=== PATIENT | male | born 1950 | race Caucasian/White ===

== ENCOUNTER → 2018-05-06 10:10 | Outpatient (CLI) | payer MEDICARE, OTHER, SELFPAY ==
--- NOTE | 2018-05-06 10:14 | DI.RAD.S_ITS ---
PROCEDURE: XR LUMBAR SPINE 2-3V INDICATIONS: 67-year-old man with low bck pain TECHNIQUE: 3 views of the lumbar spine were acquired. COMPARISON: None. FINDINGS: Bones: 5 [id number] vertebrae are present. There is grade 1 anterolisthesis of C4 over C5. No vertebral body compression fractures. No suspicious bony lesions. There is mild degenerative disc disease scattered in lumbar spine. Severe facet arthropathy at L4-L5 and L5-S1. Soft tissues: Overlying bowel gas pattern is normal. Vascular calcifications consistent with atherosclerosis. IMPRESSION: Degenerative disc and facet disease as described. Dictated by: Robert Vizcaino M.D. on 05/06/2018 at 13:41 Approved by: Robert Vizcaino M.D. on 05/06/2018 at 13:43
[2018-05-06 14:46] LABS: Prostate Specific Antigen Scrn 1.15 ng/mL (0.1-4.0)
== END ==
PROVIDERS: Visit Provider Family Medicine
DX: M54.5 Low back pain (principal)
CPT/HCPCS: 36415; 72100; G0103

== ENCOUNTER 2018-10-23 08:06 | Inpatient (IN) | payer MEDICARE, OTHER, SELFPAY ==
[2018-10-02 12:46] VITALS: BMI 33.3
[2018-10-23] VITALS (24 sets, daily range): BP systolic 91–149; BP diastolic 51–91; PULSE 62–101; RESP 12–20; TEMP 36.1–37.1; O2SAT 93–100; BMI 33.2; BMI 33.9
--- NOTE | 2018-10-23 | DI.RAD.S_ITS ---
PROCEDURE: XR LUMBAR SPINE 2-3V INDICATIONS: L4-5 TLIF FINDINGS: 2 limited intraoperative fluoroscopically stored images of the lumbosacral junction were obtained for intraoperative hardware localization purposes. These images are not meant for diagnostic purposes. Intraoperative findings related to a L4-5 discectomy infusion procedure are present. IMPRESSION: Intraoperative images obtained during the patient's L4-5 discectomy and fusion procedure. Dictated by: Afshin Campbell M.D. on 10/24/2018 at 12:16 Approved by: Afshin Campbell M.D. on 10/24/2018 at 12:17
[2018-10-23] MEDS: LACTATED RINGERS 1,000 ML 42 ML IV ×2 (08:53→12:23)
--- NOTE | 2018-10-23 09:23 | PM.PREOP ---
Pre-operative Note Interval Note History & Physical reviewed/Exam performed by Physician: Yes Changes to H&P: No
--- NOTE | 2018-10-23 09:27 | P.OP_ITS ---
Operative Date/Time/Diagnoses Date of procedure: 10/23/18 Time of procedure: 12:25 Pre-op diagnosis: Lumbar stenosis with radiculopathy Lumbar spondylolisthesis Post-op diagnosis: same Procedure & Clinicians Procedure: L4-5 TLIF (post/post innerbody fusion) with cage L4 and L5 screws L4-5 laminectomy Use of microscope Iliac crest bone graft Placement of epidural catheter Same procedure as scheduled: Yes Indications: [age] year old male with intractable pain from lumbar stenosis and spondylolisthesis. They had failed conservative management and requested operative intervention. Risks and benefits of surgery were discussed and appropriate consents were obtained. Surgeon: Rick Collado Assembly Inspector Helper: Alessandra Tillman Anesthesia Type: General Operative Notes Findings: None Closure Type: primary Specimen(s): none sent Implants & Drains: NuVasive MAS Reline screws Globus Rise cage Applied: catheter Estimated Blood Loss (mL): 20 Procedure in detail: The patient was brought to the operating room and intubated on the table. A time-out was performed. They were then rolled over to the well-padded Don table in the prone position. Preoperative antibiotics were given. The back was prepped and draped in the standard sterile fashion. Using fluoroscopy, a 4 cm longitudinal incision was made to the left of the midline. We used Bovie to come down to and split the lumbodorsal fascia. Using fluoroscopy and monitoring, we then percutaneously placed Jamshidi needles down the pedicles of L4 and L5 on the left side. These were changed out to guidewires and then we tapped and then placed the NuVasive MAS Precept screw shanks. We then opened up the retractors and used Bovie to clear up the posterolateral gutter as well as medially along the lamina to the spinous processes. A bur was used to decorticate the transverse processes. We brought in the microscope. Using a combination of bur and Kerrison rongeurs , a laminectomy was performed from the left side. We cleared over past the midline and carefully depressed the dura until we were able to decompress the opposite side. We cleared out the neural foramen. This completed the laminectomy at L4-5. This was separate and distinct from the TLIF approach as we were decompressing the canal and the nerves. We then began the TLIF prep. A complete facetectomy was performed on this side at L4-5. We carefully cleaned up the remainder of the foramen until we could easily retract the exiting root as well as clearing medially below the dura and expose the disc space. The disc was prepped with bipolar and then an annulotomy was performed. We performed a diskectomy using a combination of paddles, alissa, pituitaries, and curettes. We distracted the disc using a paddle and locked the retractor in an open position. We then filled the disc space with Osteocell bone graft. We then placed the globus Rise cage under fluoroscopy and then filled this in with more bone graft. The distraction on the retractor was released to compress down. This completed the posterior interbody fusion portion of the TLIF at L4-5. We then placed the screw heads, fabi, and locked down the set screws. The wound was copiously irrigated. A small stab incision was made over the PSIS. We used a Jamshidi needle to aspirate several mL of bone marrow from the pelvis. This was mixed with the remaining Osteocell and combined with all of the locally harvested bone graft and placed in the posterolateral gutter for the posterior fusion of the TLIF at L4-5. An epidural catheter was then placed in the spinal canal by carefully depressing the dura and advancing it 6 cm cephalad under the remaining lamina without resistance. The muscle fascia was closed. The catheter was then injected with a solution containing 4 mL of 0.5% Marcaine, 1 mg Stadol, 4 mg Duramorph, and 100 mcg of fentanyl. This was injected without resistance and the catheter was pulled. We then went to the opposite side. Again using fluoroscopy, a 3 cm incision was made and Bovie was used to come down to split the fascia. Using neural monitoring and fluoroscopy, Jamshidi needles were advanced down the pedicles of L4 and L5 on the right side. These were switched over guidewires, tapped, and screws placed. We then placed a fabi and locked the set screws on this side. The wound was irrigated. The fascia was closed. Vancomycin powder was placed in the wounds. The superficial and skin were closed. A sterile dressing was placed. The patient was then rolled over extubated and brought to recovery room without complications. Complications: none Condition: stable Disposition: PACU Plan for aftercare: Inpatient. Up with physical therapy.
[2018-10-23] MEDS: CEFAZOLIN 2 GM/100 ML FROZ.PIGGY IV ×2 (09:56→17:10)
--- NOTE | 2018-10-23 10:35 | SUR.OPER ---
Prone on spine table, head in foam head support, padded chest and pelvic supports, gel pad at knees, lower legs supported by pillows; nipples, genitalia and toes free of pressure, arms secured on foam padded arm boards at <90 degrees abduction. Tape over blanket at thigh secured to table.
[2018-10-23] MEDS: BUPIVACAINE 0.5% (PF) 4 ML, MORPHINE-PF 4 MG, BUTORPHANOL 1 MG, fentaNYL 100 MCG INJ (11:00)
[2018-10-23] MEDS: VANCOMYCIN 1,000 MG VIAL 1000 MG TOP (11:04)
[2018-10-23] MEDS: SODIUM CHLORIDE 0.9% 1,000 ML, GENTAMICIN 80 MG IRR (11:04)
[2018-10-23] MEDS: THROMBIN (BOVINE) 5,000 UNIT VIAL 5000 UNIT TOP (11:11)
[2018-10-23] MEDS: HYDROMORPHONE 2 MG INJ 0.5 MG IV ×4 (13:01→13:28)
[2018-10-23] MEDS: LORazepam 2 MG/ML SYRINGE 0.5 MG IV (13:33)
[2018-10-23] MEDS: fentaNYL 100 MCG/2 ML INJ 50 MCG IV ×3 (13:34→13:46)
[2018-10-23] MEDS: ALBUTEROL 2.5 MG/3 ML NEB (ADULT) INH (13:43)
--- NOTE | 2018-10-23 14:11 | SUR.PHASEI ---
Pt recieved a breathing treatment. his lungs remained clear but pt requested a treatment due to his hx of asthma pt states his breathing feels good now. pt also states hiis pain is always at a 5-6 . he states he can live with that.
[2018-10-23] MEDS: LACTATED RINGERS 1,000 ML 125 ML IV ×2 (14:49→23:38)
[2018-10-23] MEDS: OXYCODONE IR 5 MG TABLET 10 MG PO ×2 (14:49→23:48)
[2018-10-23] MEDS: CARISOPRODOL 350 MG TABLET 525 MG PO (16:18)
[2018-10-23] MEDS: CELECOXIB 200 MG CAPSULE 400 MG PO (16:19)
[2018-10-23] MEDS: buPROPion XL 150 MG TAB PO (16:19)
[2018-10-23] MEDS: MONTELUKAST 10 MG TABLET PO (17:07)
[2018-10-23] MEDS: diphenhydrAMINE 25 MG TABLET PO (18:25)
[2018-10-23] MEDS: CELECOXIB 200 MG CAPSULE PO (22:00)
[2018-10-23] MEDS: DOCUSATE 100 MG CAPSULE PO (22:00)
[2018-10-23] MEDS: TRAZODONE 100 MG TABLET 200 MG PO (22:00)
[2018-10-23] MEDS: GABAPENTIN 300 MG CAPSULE PO (22:00)
[2018-10-23] MEDS: SENNOSIDES 8.6 MG TABLET 17.2 MG PO (22:00)
[2018-10-23] MEDS: FLUTICASONE 120 SPRAY/16 GM SPRAY.SUSP NASAL (22:00)
[2018-10-24] MEDS: CEFAZOLIN 2 GM/100 ML FROZ.PIGGY IV (02:17)
[2018-10-24] MEDS: OXYCODONE IR 5 MG TABLET 10 MG PO ×3 (04:03→11:13)
[2018-10-24 04:19] VITALS: BP 122/73; PULSE 74; RESP 16; TEMP 36.8; O2SAT 93
[2018-10-24] MEDS: diphenhydrAMINE 25 MG TABLET PO ×2 (04:39→10:06)
[2018-10-24 05:51] LABS: Hematocrit 39.3 % (41-53); Hemoglobin 13.3 g/dL (13.5-17.5)
[2018-10-24 07:54] VITALS: BP 141/69; PULSE 69; RESP 18; TEMP 36.7; O2SAT 97
--- NOTE | 2018-10-24 07:56 | PM.PNPO.1 ---
Subjective Date Patient Seen: 10/24/18 Time Patient Seen: 07:56 Interval history: He is doing well. Was actually up and walking around by himself last night. No leg pain. Back pain has gone as high as a 6, but coming back down after pain medication. Exam Vital Signs (past 8 hours): - 10/24/18 04:19 Temperature 98.3 F Pulse Rate 74 Respiratory Rate 16 Blood Pressure 122/73 Pulse Oximetry 93 Fraction of Inspired Oxygen 21 Oxygen Delivery Method Room Air Oxygen Flow Rate 0 Const Orientation: alert and oriented x3 Back/Spine/Pelvis Other: Mild dry drainage on dressing. 5/5 motor both lower extremities. Easily rolls over and sits up in bed. Objective Labs Result Diagrams: 10/24/18 05:10 Labs: Laboratory Results - last 24 hr 10/24/18 05:10 Hgb 13.3 L Hct 39.3 L Assessment & Plan Post-op Postoperative Procedures Operation Date: 10/23/18 09:45 Actual Procedures Side Surgeon p L4-5 Laminectomy w/Instru. fusion Rick Collado MD he is doing very well after surgery. Mobilize with therapy. Anticipate discharge home tomorrow, but he may be comfortable enough to to go home later this afternoon and I will leave the paperwork in the chart if needed. Quality VTE Deep Vein Thrombosis/Pulmonary Embolism Present on Admission: No
[2018-10-24] MEDS: POTASSIUM CHLORIDE 10 MEQ TAB PO (08:09)
[2018-10-24] MEDS: buPROPion XL 150 MG TAB PO (08:09)
[2018-10-24] MEDS: hydroCHLOROthiazide 25 MG TABLET PO (08:09)
[2018-10-24] MEDS: CELECOXIB 200 MG CAPSULE PO (08:09)
[2018-10-24] MEDS: CITALOPRAM 20 MG TABLET PO (08:09)
[2018-10-24] MEDS: DOCUSATE 100 MG CAPSULE PO (08:09)
[2018-10-24 08:10] VITALS: BP 141/69
[2018-10-24] MEDS: LOSARTAN 50 MG TABLET 100 MG PO (08:10)
[2018-10-24] MEDS: SILDENAFIL 20 MG TABLET 60 MG PO (08:11)
--- NOTE | 2018-10-24 12:34 | PT.IIE ---
Current Diagnoses Spondylolisthesis, lumbar region (10/23/18) Spinal stenosis, lumbar region with neurogenic claudication (10/23/18) Surgery Performed Operation Date: 10/23/18 09:45 Actual Procedures p L4-5 Laminectomy w/Instru. fusion - Rick Collado MD Surgical History (Last Updated 10/02/18 @ 13:16 by Consuelo Mann, RN) History of vasectomy (Acute) Hx of cholecystectomy (Acute ~2016) S/P UPPP (uvulopalatopharyngoplasty) (Acute) Anesthesia (Resolved) History of gastric bypass (Resolved ~2010) History of hernia surgery (Resolved ~2007) History of knee surgery (Resolved ~2006) History of knee surgery (Resolved ~2008) History of shoulder surgery (Resolved ~1994) Medical History (Last Updated 10/02/18 @ 13:19 by Consuelo Mann RN) Atrial fibrillation with RVR (Acute ~2016) Easy bruisability (Acute) Pneumonia (Acute) Psoriasis (Acute) Sleep apnea (Acute) Ankle pain (Chronic) Asthma (Chronic) Cataracts, bilateral (Chronic ~2014) Chronic back pain (Chronic) Depression (Chronic ~2006) Foot pain (Chronic) Headache (Chronic) Hearing loss (Chronic ~1989) Hypertension (Chronic ~2012) Seasonal allergies (Chronic) Shoulder pain (Chronic) Vision disorder (Chronic) Chicken pox (Resolved ~1965) Measles (Resolved) Mumps (Resolved) Physical Therapy Inpatient Evaluation/Re-Eval M1 PT/OT-IP Prior Functional Status Start: 10/24/18 12:14 Freq: NEEDED Status: Active Protocol: Document 10/24/18 10:20 (Rec: 10/24/18 12:33 [email or web address]) Medical Review Prior Functional Status Medical History Reviewed Yes Diet/Fluid Consistency Regular Communication no deficits noted Mobility and Gait independent ambulator without AD at home and community Activities of Daily Living and IADL's independent for ADLs and IADLs without AD Social History Household Members spouse Living Arrangements House Number of Floors (Floors) 3 or More Floors Number of Stairs To Enter/Railing? 2 [place]ICO without railings Home Environment Standard Height Toilet Walk in Shower Home Equipment Four Wheel Walker Employment Status Retired Additional Social History Comment Pt lives with his who will be his CG as needed after d/c. Pt lives at a 3 story house with 2 [place] w/o railings and 14 steps inside of the house. He also has counters around next to each stairs for him to support as needed. Pt is independent for all ADLs and IADLs prior to sx. M2 PT-IP Current Condition Start: 10/24/18 12:14 Freq: NEEDED Status: Active Protocol: Document 10/24/18 10:20 HH (Rec: 10/24/18 12:33 [email or web address]) Physical Therapy Current Condition Current Condition Evaluation Date 10/24/18 Treatment Diagnosis Post TLIF Onset Date 10/24/18 Precautions Lumbar Precautions Log Roll No Twisting Limit Bending Lifting Restriction of 10 lbs Gait Belt above Incisional Area Weight Bearing Status Weight Bearing Status Weight Bear as Tolerated M3 PT-IP Subjective Start: 10/24/18 12:14 Freq: NEEDED Status: Active Protocol: Document 10/24/18 10:20 HH (Rec: 10/24/18 12:33 [email or web address]) Subjective Physical Therapy Visit Type Type Initial Evaluation Visit Start Time 10:20 Visit Stop Time 11:00 Total Visit Minutes 40 Number of HANGING FLAGS DECORATOR Visits 0 Physical Therapy Visit Comments Patient Comments My pain is only 2/10 at rest but 5/10 when im walking. I've been going to bathroom at night with nursing staff without using walker. Patient Goals To reach PLOF without using AD and pain free to be able to go home Therapy Pain Assessment Pain When Pain Assessed During Mobility Pain Present Pain Present Pain Reported Location Generalized Intensity 5 Scale Used Numeric (1 - 10) Description Aching Pain Management Techniques Apply Cold Re-positioning Timing of Activity with Medications M4 PT-IP Mobility and Gait Start: 10/24/18 12:14 Freq: NEEDED Status: Active Protocol: Document 10/24/18 10:20 HH (Rec: 10/24/18 12:33 [email or web address]) PT-Bed Mobility Assessment Rolling Type of Rolling Log Rolling Level of Assist Standby Assistance Supine to Sit Supine to Sit Standby Assistance Sit to Supine Sit to Supine Standby Assistance Scooting Scooting to Edge of Bed Standby Assistance Scooting Up and Down in Bed Standby Assistance PT-Transfer Assessment Sit to and From Stand Sit to and from Stand Standby Assistance Equipment Transfer Assistive Device None Gait Belt Transfers Transfer Destination Bed Chair Toilet Wheelchair Transfer Technique Stand Step Pivot Transfer Ability Level of Assist Standby Assistance Comments Mobility Comments Pt's BP ranged from 127-132/ 73-80 HR 79-82 during tx session. Pt performed overall bed mobility and transfer with SBA 1pa. Pt and his understand post op precations and able to recall them at the end of tx session. Pt did not show signs of acute distress and LOB. Gait Assessment Gait Gait Assistance Required: Standby Assistance Distance (Feet) 200 Able to Maintain Weight Bearing Status Yes During Gait Assistive Devices Assistive Device None Gait Belt Gait Deviations General Gait Pattern Within Normal Limits Comments Gait Comments Pt amb from EOB to hallway > 200 feet without rest SBA without AD. Pt did not show signs of LOB and acute distress. He also did not c/o increase in pain and did not request for rest. Pt does demonstrate sway back posture with decreased arm swing. Education is given to pt and his regarding neutral alignment to avoid excessive lumbar extension during walking. Stair Climbing Assessment Evaluation Level of Assist On Stairs Standby Assistance Devices Stair Climbing Assistive Devices None Technique/Endurance Stair Climbing Direction Ascend and Descend Stair Climbing Technique Step Over Step Number of Steps Climbed 9 Query Text: Comments Stair Climbing Comments Pt demonstrates safe stair negotiation without AD SBA. Pt uses step over pattern without signs of LOB and acute distress. PT-Balance Assessment Sitting Balance and Reactions Static Sitting Balance Ability Normal Dynamic Sitting Balance Ability Normal Standing Balance and Reactions Static Standing Balance Ability Normal Dynamic Standing Balance Ability Normal M5 PT-IP Objective Assessments Start: 10/24/18 12:14 Freq: NEEDED Status: Active Protocol: Document 10/24/18 10:20 (Rec: 10/24/18 12:33 [email or web address]) Orientation Orientation/Cognition Level of Alertness Alert Orientation Name Age Birthday Month Date Year Day of Week Place Situation Language Function Ability No Deficits Noted Safety Awareness Understands Safety Issues Memory Description No Deficits Noted Gross Range of Motion Upper Extremity ROM Assessment Within Functional Limits Lower Extremity ROM Assessment Within Functional Limits Strength Upper Extremity Strength Assessment Within Functional Limits Lower Extremity Strength Assessment Within Functional Limits Coordination Assessment Gross Coordination Gross Coordination WNL Sensation Assessment Sensation Gross Sensation WNL M6 PT-IP Treatment Start: 10/24/18 12:14 Freq: NEEDED Status: Active Protocol: Document 10/24/18 10:20 (Rec: 10/24/18 12:33 [email or web address]) Physical Therapy Treatment Education Education Provided Precautions Weight Bearing Status Post-Op Packet Safety M7 PT-IP Assessment and Plan Start: 10/24/18 12:14 Freq: NEEDED Status: Active Protocol: Document 10/24/18 10:20 (Rec: 10/24/18 12:33 [email or web address]) PT Summary Assessment and Plan Potential Rehabilitation Potential Excellent Status of Condition at Evaluation Stable Summary Impairments Pain Activity Tolerance Assessment Summary Pt is 68 yo pleasant male post op day 1 TLIF due to his chronic back pain and radiating pain down to his B buttock. Pt demonstrates significant recovery after surgery without signs of acute distress and LOB during mobility assessment. Pt and his reports they think pt is already back to PLOF with decreased pain. Pt will be d/c to home today due to his current stable medical status. In my professional opinion, pt will further benefit from receiving outpatient PT for rehab to address his pain, increase his overall mobility and functional strength. Goals Bed Mobility Goal Independent Transfer Goal Independent Gait Goal Independent Gait Distance 500 Days to Meet Goals 3 Frequency of Treatment Frequency Of Treatment Twice a Day Treatment Plan Physical Therapy Treatment Plan Bed Mobility Training Transfer Training Gait Training Therapeutic Exercise Balance Retraining Post Op Education Hot or Cold Pack Other Recommendations and Next Treatment stair climbing as trell Focus gait training as trell Recommendations To Nursing Amount of Assist Needed Standby Assistance 1 Person Assist Discharge Recommendations PT Discharge Recommendations Home Outpatient PT
--- NOTE | 2018-10-24 12:45 | PC.NURSE ---
Pt dressed, showered, and ready for discharge home with spouse. Pt has worked with PT and OT today and has been cleared. Reviewed discharge orders with Pt and Spouse, discussed d/c meds, time of last dose, encouraged Pt to drink lots of fluids and consider a stool softener to prevent constipation. Reviewed stroke education. Pt and Spouse deny further questions and is ready to be taken out via w/c by HEMATOLOGY TECHNOLOGIST to POV with Spouse and all belongings.
--- NOTE | 2018-10-24 12:51 | OT.IP.EVAL ---
Current Diagnoses Spondylolisthesis, lumbar region (10/23/18) Spinal stenosis, lumbar region with neurogenic claudication (10/23/18) Surgery Performed Operation Date: 10/23/18 09:45 Actual Procedures p L4-5 Laminectomy w/Instru. fusion - Rick Collado MD Past Medical History (Last Updated 10/02/18 @ 13:19 by Consuelo Mann RN) Atrial fibrillation with RVR (Acute ~2016) Easy bruisability (Acute) Pneumonia (Acute) Psoriasis (Acute) Sleep apnea (Acute) Ankle pain (Chronic) Asthma (Chronic) Cataracts, bilateral (Chronic ~2014) Chronic back pain (Chronic) Depression (Chronic ~2006) Foot pain (Chronic) Headache (Chronic) Hearing loss (Chronic ~1989) Hypertension (Chronic ~2012) Seasonal allergies (Chronic) Shoulder pain (Chronic) Vision disorder (Chronic) Chicken pox (Resolved ~1965) Measles (Resolved) Mumps (Resolved) Surgical History (Last Updated 10/02/18 @ 13:16 by Consuelo Mann RN) History of vasectomy (Acute) Hx of cholecystectomy (Acute ~2016) S/P UPPP (uvulopalatopharyngoplasty) (Acute) Anesthesia (Resolved) History of gastric bypass (Resolved ~2010) History of hernia surgery (Resolved ~2007) History of knee surgery (Resolved ~2006) History of knee surgery (Resolved ~2008) History of shoulder surgery (Resolved ~1994) Occupational Therapy Inpatient Evaluation/Re-Eval M1 PT/OT-IP Prior Functional Status Start: 10/24/18 12:14 Freq: NEEDED Status: Active Protocol: Document 10/24/18 10:20 (Rec: 10/24/18 12:33 [id number]) Medical Review Prior Functional Status Medical History Reviewed Yes Diet/Fluid Consistency Regular Communication no deficits noted Mobility and Gait independent ambulator without AD at home and community Activities of Daily Living and IADL's independent for ADLs and IADLs without AD Social History Household Members spouse Living Arrangements House Number of Floors (Floors) 3 or More Floors Number of Stairs To Enter/Railing? 2 [place]ICO without railings Home Environment Standard Height Toilet Walk in Shower Home Equipment Four Wheel Walker Employment Status Retired Additional Social History Comment Pt lives with his who will be his CG as needed after d/c. Pt lives at a 3 story house with 2 [place] w/o railings and 14 steps inside of the house. He also has counters around next to each stairs for him to support as needed. Pt is independent for all ADLs and IADLs prior to sx. M1 PT/OT-IP Prior Functional Status Start: 10/24/18 12:30 Freq: NEEDED Status: Active Protocol: Document 10/24/18 12:31 [facility] (Rec: 10/24/18 12:50 [facility] [id number]) Medical Review Prior Functional Status Medical History Reviewed Yes Communication Independent. Mobility and Gait Pt independent with no device. Activities of Daily Living and IADL's Pt needing increased time for ADL's and IADL needs. Pt takes his own medications and pays the bills. Prior Functional Level (Other details) Pt's states will have pt sleep in the recliner initially. Social History Household Members spouse Living Arrangements House Number of Floors (Floors) 3 or More Floors Number of Stairs To Enter/Railing? 2 steps and no rails, and 14 steps with right hand rail going up to the bedroom. Home Environment Standard Height Toilet Walk in Shower Home Equipment Four Wheel Walker Straight Cane M2 OT-IP Current Condition Start: 10/24/18 12:30 Freq: Status: Active Protocol: Document 10/24/18 12:31 [facility] (Rec: 10/24/18 12:50 [facility] [id number]) Occupational Therapy Current Condition Current Condition Evaluation Date 10/24/18 Treatment Diagnosis Lumber Stenosis Diagnosis Onset Date 10/23/18 Post Operative Precautions Lumbar Precautions Log Roll No Twisting Limit Bending Lifting Restriction of 10 lbs Gait Belt above Incisional Area Weight Bearing Status Weight Bearing Status Weight Bear as Tolerated M3 OT- IP Subjective and Pain Start: 10/24/18 12:30 Freq: Status: Active Protocol: Document 10/24/18 12:31 [facility] (Rec: 10/24/18 12:50 [facility] [id number]) OT- Subjective Occupational Therapy Visit Type Type Initial Evaluation Visit Start Time 10:00 Visit Stop Time 10:25 Total Visit Minutes 50 Notes Pt also seen from [id number] for showering and family training with . Occupational Therapy Visit Comments Patient/Caregiver Goals Pt wanting to go home today. OT Pain Assessment Pain When Pain Assessed During Mobility Pain Present Pain Present Pain Reported Location Generalized Intensity 7 Scale Used Numeric (1 - 10) M4 OT- IP ADL's Start: 10/24/18 12:30 Freq: Status: Active Protocol: Document 10/24/18 12:31 [facility] (Rec: 10/24/18 12:50 [facility] [id number]) OT ADL-Dressing General Eval Upper Body Dressing Ability Independent Lower Body Dressing Ability Moderate Assistance Areas Needing Assistance Underpants/Brief Socks Shoes Comments OT Dressing Comments Educated pt and for LB dressing AED, pt able to practice use of machine riveter and sock aid. Pt's after shower assist to li clothing items over his feet. OT ADL-Bathing Bathing Type Bathing Type Shower General Evaluation Bathing Ability Contact Guard Assistance Comments OT Bathing Comments Pt able to stand for showering needs and assist for completeness for his back and vc for safety of back precautions. M5 OT- IP IADL's Start: 10/24/18 12:30 Freq: Status: Active Protocol: Document 10/24/18 12:31 [facility] (Rec: 10/24/18 12:50 [facility] [id number]) OT-Instrumental Activities of Daily Living Money Management Money Management Caregiver Provides Assistance Meal Preparation Meal Preparation Caregiver Provides Assist Blood Bank Supervisor Blood Bank Supervisor Comments to assist. M6 OT- IP Functional Cognition Start: 10/24/18 12:30 Freq: Status: Active Protocol: Document 10/24/18 12:31 [facility] (Rec: 10/24/18 12:50 [facility] [id number]) Cognitive Factors Limiting Selfcare Function Cognitive Ability Level of Alertness Alert Patient Orientation Name Place Situation Attention Span Ability Capable of Focused Attention Capable of Sustained Attention Ability to Follow Commands Able to Follow One Step Commands Able to Follow One Step Commands with Repetition Memory Description Short Term Impaired Safety Awareness Decreased Ability to Apply Precautions Underestimates Need for Assistance Problem Solving Ability Needs Assist to Identify Solutions Cognitive Comments Cognitive Assessment Comments Pt needing vc to slow down and incorporate back precautions. VC to push up from armrests of the recliner versus grab to 4WW. Pt's has good understanding for all pt needs and to assist safely. Suggested if having to go out to work, that initially would be best to have someone be with the pt as currently not remembering back precautions and a bit impulsive. OT- Vision and Hearing OT- Hearing Assessment OT- Hearing Assessment WFL M7 OT- IP Mobility and Balance Start: 10/24/18 12:30 Freq: Status: Active Protocol: Document 10/24/18 12:31 [facility] (Rec: 10/24/18 12:50 [facility] [id number]) OT- Bed Mobility Assessment Rolling Type of Rolling Roll to Left Level of Assistance Standby Assistance Supine to Sit Supine to Sit Assist Standby Assistance OT-Transfer Assessment Sit to and From Stand Sit to and from Stand Standby Assistance Contact Guard Assistance Transfers Transfer Ability Standby Assistance Contact Guard Assistance Technique Transfer Destination Bed Chair Shower Stall Transfer Technique Stand Step Pivot Devices Transfer Assistive Devices None Gait Belt 4 Wheeled Walker Comments Mobility Comments Pt is more stable with 4WW, however able to walk without device on even surfaces. PT in at the end of the session with pt to determine safety way for pt's ambulation needs. OT- Balance Assessment Sitting Balance and Reactions Static Sitting Balance Ability Normal Dynamic Sitting Balance Ability Normal Standing Balance and Reactions Static Standing Balance Ability Good Dynamic Standing Balance Ability Fair M9 OT- IP Assessment and Plan Start: 10/24/18 12:30 Freq: Status: Active Protocol: Document 10/24/18 12:31 [facility] (Rec: 10/24/18 12:50 [facility] [id number]) OT Summary Assessment and Plan Potential Rehabilitation Potential Excellent Analytic Complexity at Evaluation Low Summary OT Impairments Functional Cognition Functional Mobility Dressing Bathing Shower Transfers Progress Towards Goals Progressing Toward Goals Assessment Summary Pt Low complexity and has completed all caregiver training and safe to assist pt for all needs. Pt still needing cues for back precautions and safety as tend to be a bit impulsive. Pt looking to go home today. Goals Patient/Caregiver Education Goal Demonstrate Post-Op Precautions Caregiver Independent Assisting Patient Days to Meet Goals 1 Frequency of Treatment Frequency Of Treatment Once a Day Treatment Plan OT Treatment Plan Patient/Family Education Discharge Planning Discharge Recommendations OT Discharge Recommendations Home with Assistance
--- NOTE | 2018-10-24 16:08 | CM.IDA ---
Discharge Planning/Care Management CM Discharge Assessment Start: 10/24/18 16:05 Freq: Status: Discharge Protocol: Document 10/24/18 16:05 [facility] (Rec: 10/24/18 16:08 [facility] [id number]) Discharge Planning Assessment Assigned Cloth Desizing Range Operator Chief Farideh Lee MSW DPOA/Assigned Designee Name Virginia Harley, spouse Contact Information [phone] Advance Directives? No Advance Directives on File No History Provided By Patient Significant Other Prior Living Arrangements House Household Members spouse Type of transporation used prior to Drives own vehicle admit Independent with ADL's Yes Is patient alert and oriented? Yes Barriers to Discharge No Comment Met w/pt and spouse this morning before pt's DC today. Both eager to get home, stair training was going to be conducted w/PT as this HUMAN RESOURCES DIRECTOR left the . Pt's explains she has a flexible work schedule and will be available to pt as needed once home. P: DC home today w/ outpt f/u as ordered. Discharge Plan Home Transportation Arrangement Spouse Referrals Initiated None needed Whiteboard Updated in Patient Room with Yes name and ext. # of Cloth Desizing Range Operator Chief Review Status In Process
== END 2018-10-24 12:53 | disposition home or self-care (01) | DRG 455 ==
PROVIDERS: Admitting Provider Orthopaedic Surgery; PCP Family Medicine; Visit Provider Orthopaedic Surgery
PROC: 0SG00AJ Fusion of Lumbar Vertebral Joint with Interbody Fusion Device, Posterior Approach, Anterior Column, Open Approach (ICD-10-PCS; principal; 2018-10-23 09:45)
DX: M48.062 Spinal stenosis, lumbar region with neurogenic claudication (principal); M43.16 Spondylolisthesis, lumbar region; G47.30 Sleep apnea, unspecified; F32.9 Major depressive disorder, single episode, unspecified
CPT/HCPCS: 36415; 72100; 76000; 85014; 85018; 94762; 97116; 97161; 97165; 97530; 97535; C1776; C1788; J0330; J0595; J0690; J1100; J1170; J2060; J2250; J2274; J2405; J2704; J3010; J7613

== ENCOUNTER → 2019-04-07 10:18 | Outpatient (CLI) | payer MEDICARE, OTHER, SELFPAY ==
[2018-10-23 08:47] VITALS: BMI 33.9
[2019-04-07 11:14] LABS: Add Manual Diff / Slide Review NO; Basophils Absolute Auto 0 /uL (0-100); Basophils Percent Auto 0.5 % (0-2); Eosinophils Absolute Auto 100 /uL (0-450); Eosinophils Percent Auto 1.1 % (2-4); Hemoglobin 15.2 g/dL (13.5-17.5); Lymphocytes Absolute Auto 1100 /uL (1100-4500); Lymphocytes Percent Auto 15.9 % (25-40); Mean Corpuscular HGB Conc 34.6 % (30-36); Mean Corpuscular Volume 89.6 fL (80-100); Monocytes Absolute Auto 700 /uL (0-900); Monocytes Percent Auto 10.5 % (3-14); Neutrophils Absolute Auto 5100 /uL (1500-7000); Platelet Count 188 X10^3/uL (150-400); Red Blood Cell Count 4.92 X10^6/uL (4.5-5.9); Red Cell Distribution Width 13.2 % (11.6-14.8); White Blood Cell Count 7.1 X10^3/uL (4.5-11.0)
[2019-04-07 12:13] LABS: Alanine Aminotransferase 28 IU/L (21-72); Albumin 4.1 g/dL (3.5-5.0); Albumin Globulin Ratio 1.6 (1.0-2.8); Alkaline Phosphatase 72 U/L (38-126); Aspartate Aminotransferase 23 IU/L (17-59); BUN Creatinine Ratio 22.2 (6-22); Bilirubin Total 0.5 mg/dL (0.2-1.3); Blood Urea Nitrogen 20 mg/dL (9-20); Calcium 9.9 mg/dL (8.4-10.2); Carbon Dioxide 32 mmol/L (22-32); Chloride 103 mmol/L (98-107); Cholesterol 141 mg/dL (140-199); Estimated Glomerular Filt Rate > 60.0 mL/min (>60); Globulin 2.5 g/dL (1.7-4.1); Glucose 88 mg/dL (80-110); HDL Cholesterol 36 mg/dL (40-60); HEMOLYSIS < 15 (0-50); LDL Cholesterol Calculated 68 mg/dL (<100); Potassium 4.6 mmol/L (3.4-5.1); Sodium 143 mmol/L (137-145); Total Protein 6.6 g/dL (6.3-8.2); Triglycerides 187 mg/dL (35-150)
[2019-04-07 12:27] LABS: Thyroid Stimulating Hormone 0.15 uIU/mL (0.47-4.68)
[2019-04-07 12:44] LABS: Prostate Specific Antigen Scrn 0.742 ng/mL (0.1-4.0)
== END ==
PROVIDERS: PCP Family Medicine; Visit Provider Family Medicine
DX: I10 Essential (primary) hypertension (principal)
CPT/HCPCS: 36415; 80053; 80061; 84443; 84550; 85025; G0103

== ENCOUNTER → 2019-04-20 10:26 | Outpatient (CLI) | payer MEDICARE, OTHER, SELFPAY ==
[2018-10-23 08:47] VITALS: BMI 33.9
[2019-04-20 12:18] LABS: Free T3, Triiodothyronine Free 3.78 pg/mL (2.77-5.27); Free T4, Direct Thyroxine 1.01 ng/dL (0.78-2.19)
[2019-04-20 12:32] LABS: Thyroid Stimulating Hormone 0.17 uIU/mL (0.47-4.68)
== END ==
PROVIDERS: PCP Family Medicine; Visit Provider Family Medicine
DX: R79.89 Other specified abnormal findings of blood chemistry (principal)
CPT/HCPCS: 36415; 84439; 84443; 84481

== ENCOUNTER → 2019-06-24 15:14 | Outpatient (CLI) | payer MEDICARE, OTHER, SELFPAY ==
[2018-10-23 08:47] VITALS: BMI 33.9
[2019-06-24 16:53] LABS: Thyroid Stimulating Hormone 0.25 uIU/mL (0.47-4.68)
== END ==
PROVIDERS: PCP Family Medicine; Visit Provider Family Medicine
DX: R79.89 Other specified abnormal findings of blood chemistry (principal); E05.90 Thyrotoxicosis, unspecified without thyrotoxic crisis or storm
CPT/HCPCS: 36415; 84443

== ENCOUNTER → 2019-08-27 09:28 | Outpatient (CLI) | payer MEDICARE, OTHER, SELFPAY ==
[2018-10-23 08:47] VITALS: BMI 33.9
--- NOTE | 2019-08-27 09:31 | DI.US.S_ITS ---
PROCEDURE: US FINE NEEDLE ASPIRATION INDICATIONS: RIGHT THYROID NODULE TECHNIQUE: The indications, alternatives, benefits, risks, and complications of the procedure were explained to the patient. Written informed consent was obtained and placed in the chart. The thyroid region was examined sonographically and a site was chosen for ultrasound guided percutaneous sampling. The skin was prepared and draped in the usual fashion, and anesthetized with 1% lidocaine infiltrated from the skin down to the thyroid gland. Multiple passes were then performed, with contents emptied into an appropriate pathology specimen container. A bandage was applied to the area of access at completion of the study. COMPARISON: None. FINDINGS: Location(s) of lesion(s) sampled: Right inferior lobe [place]: 22 and 25 gauge hypodermic needles. Number of passes: 11 Medications: 1% lidocaine for local anaesthesia. Complications: None. IMPRESSION: Successful ultrasound-guided thyroid nodule fine needle aspiration, with cytology results pending. Please see chart below for management recommendations based on cytology results. [place] [facility] ReportingRecommendationsNon-diagnostic* Repeat US-guided FNA, with on-site cytology evaluation if possible. * Repeated non-diagnostic nodules without high suspicion US features: close observation vs surgical consult. * Consider surgery if nodule has high suspicion US features, grows >20% in 2 dimensions on followup, or patient has clinical risk factors for malignancy. Benign* If nodule has high suspicion US features: repeat US and FNA within 12 months. * If nodule has low to intermediate suspicion US features: repeat US at 12-24 months. If nodule grows (20% increase in at least 2 dimensions, with minimal increase of 2 mm or >50% change in volume), or development of new suspicious US features, then repeat FNA or continue followup. * If nodule has very low suspicion US features: followup US at >24 months. Atypia of undetermined significance, follicular lesion of undetermined significanceRepeat FNA, molecular testing, followup US, or surgical consult.Follicular neoplasm, suspicious for follicular neoplasmSurgical consult; also consider molecular testing. Suspicious for malignancySurgical consult.MalignantSurgical consult. Dictated by: Tanmay Cano M.D. on 08/27/2019 at 17:05 Approved by: Tanmay Cano M.D. on 08/27/2019 at 17:06
== END ==
PROVIDERS: PCP Family Medicine; Visit Provider Family Medicine
DX: E04.2 Nontoxic multinodular goiter (principal)
CPT/HCPCS: 10005

== ENCOUNTER → 2019-10-07 10:10 | Outpatient (CLI) | payer MEDICARE, OTHER, SELFPAY ==
[2018-10-23 08:47] VITALS: BMI 33.9
[2019-10-07 11:55] LABS: Free T3, Triiodothyronine Free 3.67 pg/mL (2.77-5.27); Free T4, Direct Thyroxine 0.85 ng/dL (0.78-2.19)
[2019-10-07 12:09] LABS: Thyroid Stimulating Hormone 0.19 uIU/mL (0.47-4.68)
== END ==
PROVIDERS: PCP Family Medicine; Visit Provider Family Medicine
DX: E05.90 Thyrotoxicosis, unspecified without thyrotoxic crisis or storm (principal); E07.9 Disorder of thyroid, unspecified
CPT/HCPCS: 36415; 84439; 84443; 84481

== ENCOUNTER → 2019-11-30 13:18 | Outpatient (CLI) | payer MEDICARE, OTHER, SELFPAY ==
[2018-10-23 08:47] VITALS: BMI 33.9
[2019-11-30 17:17] LABS: Thyroid Stimulating Hormone 1.13 uIU/mL (0.47-4.68)
== END ==
PROVIDERS: PCP Family Medicine; Referring Provider Family Medicine; Visit Provider Family Medicine
DX: E05.90 Thyrotoxicosis, unspecified without thyrotoxic crisis or storm (principal)
CPT/HCPCS: 36415; 84443

== ENCOUNTER → 2020-05-10 09:36 | Outpatient (CLI) | payer MEDICARE, OTHER, SELFPAY ==
[2018-10-23 08:47] VITALS: BMI 33.9
[2020-05-10 11:35] LABS: Add Manual Diff / Slide Review NO; Basophils Absolute Auto 0 /uL (0-100); Basophils Percent Auto 0.7 % (0-2); Eosinophils Absolute Auto 100 /uL (0-450); Eosinophils Percent Auto 1.4 % (2-4); Hematocrit 41.6 % (41-53); Hemoglobin 14.2 g/dL (13.5-17.5); Lymphocytes Absolute Auto 1200 /uL (1100-4500); Lymphocytes Percent Auto 17.2 % (25-40); Mean Corpuscular HGB Conc 34.1 % (30-36); Mean Corpuscular Hemoglobin 30.9 PG (26-34); Mean Corpuscular Volume 90.7 fL (80-100); Monocytes Absolute Auto 700 /uL (0-900); Monocytes Percent Auto 9.6 % (3-14); Neutrophils Absolute Auto 5100 /uL (1500-7000); Neutrophils Percent Auto 71.1 % (50-75); Platelet Count 168 X10^3/uL (150-400); Red Blood Cell Count 4.59 X10^6/uL (4.5-5.9); Red Cell Distribution Width 12.9 % (11.6-14.8); White Blood Cell Count 7.2 X10^3/uL (4.5-11.0)
[2020-05-10 12:21] LABS: Alanine Aminotransferase 24 IU/L (<50); Albumin 4.1 g/dL (3.5-5.0); Albumin Globulin Ratio 1.8 (1.0-2.8); Alkaline Phosphatase 74 U/L (38-126); Aspartate Aminotransferase 27 IU/L (17-59); BUN Creatinine Ratio 27.1 (6-22); Bilirubin Total 0.5 mg/dL (0.2-1.3); Blood Urea Nitrogen 26 mg/dL (9-20); Calcium 9.7 mg/dL (8.4-10.2); Carbon Dioxide 31 mmol/L (22-32); Chloride 103 mmol/L (98-107); Cholesterol 148 mg/dL (140-199); Estimated Glomerular Filt Rate > 60.0 mL/min (>60); Globulin 2.3 g/dL (1.7-4.1); Glucose 79 mg/dL (80-110); HDL Cholesterol 35 mg/dL (40-60); HEMOLYSIS < 15 (0-50); LDL Cholesterol Calculated 69 mg/dL (<100); Potassium 4.5 mmol/L (3.4-5.1); Sodium 139 mmol/L (137-145); Total Protein 6.4 g/dL (6.3-8.2); Triglycerides 218 mg/dL (35-150)
[2020-05-10 12:37] LABS: Free T3, Triiodothyronine Free 3.48 pg/mL (2.77-5.27); Free T4, Direct Thyroxine 0.72 ng/dL (0.78-2.19)
[2020-05-10 12:50] LABS: Thyroid Stimulating Hormone 0.244 uIU/mL (0.47-4.68)
== END ==
PROVIDERS: PCP Family Medicine; Referring Provider Family Medicine; Visit Provider Family Medicine
DX: E05.90 Thyrotoxicosis, unspecified without thyrotoxic crisis or storm (principal); I10 Essential (primary) hypertension; Z12.5 Encounter for screening for malignant neoplasm of prostate
CPT/HCPCS: 36415; 80053; 80061; 84439; 84443; 84481; 85025; G0103

== ENCOUNTER → 2020-08-08 09:52 | Outpatient (CLI) | payer MEDICARE, OTHER, SELFPAY ==
[2018-10-23 08:47] VITALS: BMI 33.9
[2020-08-08 11:40] LABS: Thyroid Stimulating Hormone 1.69 uIU/mL (0.47-4.68)
== END ==
PROVIDERS: PCP Family Medicine; Referring Provider Family Medicine; Visit Provider Family Medicine
DX: E05.90 Thyrotoxicosis, unspecified without thyrotoxic crisis or storm (principal); R79.89 Other specified abnormal findings of blood chemistry
CPT/HCPCS: 36415; 84443

== ENCOUNTER → 2020-11-24 10:30 | Outpatient (CLI) | payer MEDICARE, OTHER, SELFPAY ==
[2018-10-23 08:47] VITALS: BMI 33.9
[2020-11-24 11:34] LABS: Free T4, Direct Thyroxine 0.72 ng/dL (0.78-2.19)
[2020-11-24 11:48] LABS: Thyroid Stimulating Hormone 0.459 uIU/mL (0.47-4.68)
== END ==
PROVIDERS: PCP Family Medicine; Referring Provider Family Medicine; Visit Provider Family Medicine
DX: E05.90 Thyrotoxicosis, unspecified without thyrotoxic crisis or storm (principal)
CPT/HCPCS: 36415; 84439; 84443

== ENCOUNTER → 2021-07-26 10:06 | Outpatient (CLI) | payer MEDICARE, OTHER, SELFPAY ==
[2018-10-23 08:47] VITALS: BMI 33.9
--- NOTE | 2021-07-26 10:08 | DI.RAD.S_ITS ---
PROCEDURE: XR HAND LT MIN 3V INDICATIONS: bilateral hand pain TECHNIQUE: 3 views of the hand(s) acquired. COMPARISON: None. FINDINGS: Bones: No acute, displaced fracture or dislocation. Osteophytosis with joint space loss involving the 1st and 2nd carpometacarpal articulations. A 2.5 mm lucency in the scaphoid, which may reflect fibrocystic change or erosion. The carpal bones are normally aligned. No suspicious bony lesions. Soft tissues: No suspicious soft tissue calcifications. IMPRESSION: No acute osseous abnormality. Dictated by: Luke Gutierrez M.D. on 07/26/2021 at 10:43 Approved by: Luke Gutierrez M.D. on 07/26/2021 at 10:45
--- NOTE | 2021-07-26 10:08 | DI.RAD.S_ITS ---
PROCEDURE: XR HAND RT MIN 3V INDICATIONS: BILATERAL HAND PAIN TECHNIQUE: 3 views of the hand(s) acquired. COMPARISON: None. FINDINGS: Bones: No acute, displaced fracture or dislocation. Carpal bones are normally aligned. No suspicious bony lesions. Soft tissues: No suspicious soft tissue calcifications. IMPRESSION: No acute osseous abnormality. Dictated by: Luke Gutierrez M.D. on 07/26/2021 at 10:45 Approved by: Luke Gutierrez M.D. on 07/26/2021 at 10:47
== END ==
PROVIDERS: PCP Family Medicine; Referring Provider Family Medicine; Visit Provider Family Medicine
DX: M79.642 Pain in left hand (principal); M79.641 Pain in right hand
CPT/HCPCS: 73130

== ENCOUNTER → 2022-06-05 09:55 | Outpatient (CLI) | payer MEDICARE, OTHER, SELFPAY ==
[2018-10-23 08:47] VITALS: BMI 33.9
[2022-06-05 11:06] LABS: Add Manual Diff / Slide Review NO; Basophils Absolute Auto 0 /uL (0-100); Basophils Percent Auto 0.6 % (0-2); Eosinophils Absolute Auto 100 /uL (0-450); Eosinophils Percent Auto 1.4 % (2-4); Hematocrit 41.2 % (41-53); Hemoglobin 14.3 g/dL (13.5-17.5); Lymphocytes Absolute Auto 1300 /uL (1100-4500); Lymphocytes Percent Auto 17.9 % (25-40); Mean Corpuscular HGB Conc 34.6 % (30-36); Mean Corpuscular Hemoglobin 30.7 PG (26-34); Mean Corpuscular Volume 88.6 fL (80-100); Monocytes Absolute Auto 700 /uL (0-900); Monocytes Percent Auto 9.9 % (3-14); Neutrophils Absolute Auto 5100 /uL (1500-7000); Neutrophils Percent Auto 70.2 % (50-75); Platelet Count 155 X10^3/uL (150-400); Red Blood Cell Count 4.65 X10^6/uL (4.5-5.9); Red Cell Distribution Width 13.4 % (11.6-14.8); White Blood Cell Count 7.3 X10^3/uL (4.5-11.0)
[2022-06-05 11:10] LABS: Alanine Aminotransferase 22 IU/L (<50); Albumin 4.1 g/dL (3.5-5.0); Albumin Globulin Ratio 1.5 (1.0-2.8); Alkaline Phosphatase 69 U/L (38-126); Aspartate Aminotransferase 25 IU/L (17-59); BUN Creatinine Ratio 24.3 (6-22); Bilirubin Total 0.5 mg/dL (0.2-1.3); Blood Urea Nitrogen 28 mg/dL (9-20); Calcium 9.1 mg/dL (8.4-10.2); Carbon Dioxide 30 mmol/L (22-32); Chloride 102 mmol/L (98-107); Cholesterol 149 mg/dL (140-199); Estimated Glomerular Filt Rate > 60 mL/min (>60); Globulin 2.8 g/dL (1.7-4.1); Glucose 97 mg/dL (80-110); HDL Cholesterol 35 mg/dL (40-60); HEMOLYSIS < 15 (0-50); LDL Cholesterol Calculated 82 mg/dL (<100); Lipase 37 U/L (23-300); Potassium 4.3 mmol/L (3.4-5.1); Sodium 138 mmol/L (137-145); Total Protein 6.9 g/dL (6.3-8.2); Triglycerides 162 mg/dL (35-150)
[2022-06-05 11:40] LABS: Prostate Specific Antigen Scrn 0.641 ng/mL (0.1-4.0)
[2022-06-05 11:54] LABS: TSH w/ Reflex to FT4 < 0.02 uIU/mL (0.47-4.68)
[2022-06-05 12:19] LABS: Free T4, Direct Thyroxine 0.93 ng/dL (0.78-2.19)
[2022-06-05 12:38] LABS: Creatinine Urine Random 180.3 mg/dL
[2022-06-05 12:42] LABS: Microalbumi Creatinin Ratio Ur 3.8 ug/mg CR (<30); Microalbumin Urine Random 0.7 mg/dL (0-1.6)
== END ==
PROVIDERS: PCP Family Medicine; Referring Provider Family Medicine; Visit Provider Family Medicine
DX: E05.90 Thyrotoxicosis, unspecified without thyrotoxic crisis or storm (principal); Z12.5 Encounter for screening for malignant neoplasm of prostate; F32.9 Major depressive disorder, single episode, unspecified; G89.29 Other chronic pain; G89.4 Chronic pain syndrome; I10 Essential (primary) hypertension; M54.50 Low back pain, unspecified
CPT/HCPCS: 36415; 80053; 80061; 82043; 82570; 83690; 84439; 84443; 85025; G0103

== ENCOUNTER → 2023-06-07 09:24 | Outpatient (CLI) | payer MEDICARE, OTHER, SELFPAY ==
[2023-03-05 15:15] VITALS: BMI 33.9
--- NOTE | 2023-06-07 09:26 | DI.RAD.S_ITS ---
PROCEDURE: XR SHOULDER RT MIN 2V INDICATIONS: chronic right shoulder pain TECHNIQUE: Three views of the shoulder were acquired. COMPARISON: None. FINDINGS: Bones: No fractures or dislocations. No suspicious bony lesions. Visualized ribs appear intact. Mild degenerative spurring at the acromioclavicular joint. Soft tissues: Several wispy calcifications seen adjacent to the greater tuberosity, likely at the rotator cuff insertion site. IMPRESSION: 1. Findings suggestive of early calcific tendinitis in the rotator cuff. 2. Mild AC joint degeneration. Dictated by: Dior Burns M.D. on 06/07/2023 at 12:15 Approved by: Dior Burns M.D. on 06/07/2023 at 12:16
--- NOTE | 2023-06-07 09:26 | DI.RAD.S_ITS ---
PROCEDURE: XR CERVICAL SPINE 2V OR 3V INDICATIONS: chronic neck pain TECHNIQUE: Four view(s) of the cervical spine were acquired. COMPARISON: None. FINDINGS: Bones: No fractures or dislocations to the C6 level. Anterior partial bridging osteophytes from C3 through C6. Posterior disc osteophyte is present at C4-5 and C5-6. Moderate disc height loss at these levels. The lateral masses of C1 appear intact on the odontoid view. No suspicious bony lesions. Soft tissues: No prevertebral soft tissue swelling. IMPRESSION: 1. Chronic appearing disc height loss and resultant bony changes at C4-5 and C5-6 may be symptomatic. Dictated by: Dior Burns M.D. on 06/07/2023 at 12:04 Approved by: Dior Burns M.D. on 06/07/2023 at 12:14
[2023-06-07 10:24] LABS: Add Manual Diff / Slide Review NO; Basophils Absolute Auto 100 /uL (0-100); Basophils Percent Auto 0.8 % (0-2); Eosinophils Absolute Auto 200 /uL (0-450); Eosinophils Percent Auto 2.7 % (2-4); Hematocrit 38.6 % (41-53); Hemoglobin 13.2 g/dL (13.5-17.5); Lymphocytes Absolute Auto 1300 /uL (1100-4500); Lymphocytes Percent Auto 19.2 % (25-40); Mean Corpuscular HGB Conc 34.3 % (30-36); Mean Corpuscular Volume 90.6 fL (80-100); Monocytes Absolute Auto 600 /uL (0-900); Monocytes Percent Auto 8.8 % (3-14); Neutrophils Absolute Auto 4700 /uL (1500-7000); Neutrophils Percent Auto 68.5 % (50-75); Platelet Count 180 X10^3/uL (150-400); Red Blood Cell Count 4.26 X10^6/uL (4.5-5.9); Red Cell Distribution Width 14.3 % (11.6-14.8); White Blood Cell Count 6.9 X10^3/uL (4.5-11.0)
[2023-06-07 10:28] LABS: Ur Creatinine Normal (Normal); Ur Specific Gravity Normal (Normal); Urine pH Normal (Normal)
[2023-06-07 10:29] LABS: UR Morphine/Opiate cutoff 300 Positive (Negative); Urine Amphetamines Negative (Negative); Urine Barbiturates Negative (Negative); Urine Benzodiazepines Negative (Negative); Urine Cocaine Negative (Negative); Urine MDMA Negative (Negative); Urine Methadone Negative (Negative); Urine Methamphetamines Negative (Negative); Urine Oxycodone Positive (Negative); Urine Phencyclidine Negative (Negative); Urine Tetrahydrocannabinol Positive (Negative); Urine Tricyclic Antidepressant Negative (Negative)
[2023-06-07 10:43] LABS: Alanine Aminotransferase 21 IU/L (<50); Albumin 3.9 g/dL (3.5-5.0); Albumin Globulin Ratio 1.6 (1.0-2.8); Alkaline Phosphatase 71 U/L (38-126); Aspartate Aminotransferase 22 IU/L (17-59); BUN Creatinine Ratio 21.1 (6-22); Bilirubin Total 0.4 mg/dL (0.2-1.3); Blood Urea Nitrogen 23 mg/dL (9-20); Calcium 9.1 mg/dL (8.4-10.2); Carbon Dioxide 28 mmol/L (22-32); Chloride 104 mmol/L (98-107); Estimated Glomerular Filt Rate > 60 mL/min (>60); Globulin 2.4 g/dL (1.7-4.1); Glucose 95 mg/dL (80-110); HEMOLYSIS < 15 (0-50); Potassium 4.2 mmol/L (3.4-5.1); Sodium 140 mmol/L (137-145); Total Protein 6.3 g/dL (6.3-8.2)
[2023-06-07 10:48] LABS: Creatinine Urine Random 144.8 mg/dL
[2023-06-07 10:57] LABS: Microalbumin Urine Random 3.2 mg/dL (0-1.6)
[2023-06-07 11:08] LABS: TSH w/ Reflex to FT4 0.03 uIU/mL (0.47-4.68)
[2023-06-07 11:32] LABS: Free T4, Direct Thyroxine 0.94 ng/dL (0.78-2.19)
== END ==
PROVIDERS: PCP Family Medicine; Referring Provider Family Medicine; Visit Provider Family Medicine
DX: M19.011 Primary osteoarthritis, right shoulder (principal); M25.511 Pain in right shoulder; M54.2 Cervicalgia; Z12.5 Encounter for screening for malignant neoplasm of prostate; E05.90 Thyrotoxicosis, unspecified without thyrotoxic crisis or storm; S37.009A Unspecified injury of unspecified kidney, initial encounter; G89.4 Chronic pain syndrome
CPT/HCPCS: 36415; 72040; 73030; 80053; 80305; 82043; 82570; 84439; 84443; 85025; G0103

== ENCOUNTER → 2024-05-26 12:25 | Outpatient (CLI) | payer MEDICARE, OTHER, SELFPAY ==
[2023-03-05 15:15] VITALS: BMI 33.9
--- NOTE | 2024-05-26 12:30 | DI.MRI.S_ITS ---
PROCEDURE: MR LUMBAR SPINE WO CON INDICATIONS: chronic pain with radiculopathy TECHNIQUE: Noncontrast sagittal T1 spin echo and T2 fast echo, sagittal STIR, and T2 fast spin echo through the lumbar spine. In cases with scoliosis, additional coronal T2 fast spin echo may be performed. COMPARISON: None. FINDINGS: Image quality: Excellent. Alignment and Curvature: There is normal bony alignment. Bone Marrow: L4-5 posterior spinal fixation and discectomy. Marrow is of normal overall signal. No acute vertebral body compression fractures. Spinal Cord: Conus medullaris terminates at the L1 level. Visualized cord demonstrates normal signal and size. Paraspinous Soft Tissues: No paravertebral masses. T12-L1: Normal appearance. L1-L2: Disc desiccation and mild height loss. Posterior disc bulge. Facet arthropathy. No central canal or neural foraminal stenosis. L2-L3: Disc desiccation and diffuse disc bulge. Small superimposed left paracentral disc extrusion extending inferiorly. Facet arthropathy. No central canal stenosis. No neural foraminal stenosis. L3-L4: Disc desiccation and mild diffuse disc bulge. Facet arthropathy and thickening of the ligamentum flavum. No significant central canal stenosis. No neural foraminal stenosis. L4-L5: Postoperative changes. No central canal stenosis. Moderate left neural foraminal stenosis and mild right neural foraminal stenosis. L5-S1: Disc desiccation. Facet arthropathy. No central canal stenosis. No neural foraminal stenosis. IMPRESSION: 1. Multilevel degenerative changes of the lumbar spine as described above status post L4-5 posterior spinal fixation and discectomy. 2. No significant central canal stenosis throughout. 3. Moderate left and mild right neural foraminal stenosis at L4-5. Dictated by: Osmin Florentino M.D. on 05/26/2024 at 16:57 Approved by: Osmin Florentino M.D. on 05/26/2024 at 17:00
== END ==
PROVIDERS: PCP Family Medicine; Referring Provider Family Medicine; Visit Provider Family Medicine
DX: M47.816 Spondylosis without myelopathy or radiculopathy, lumbar region (principal); M47.817 Spondylosis without myelopathy or radiculopathy, lumbosacral region; M48.061 Spinal stenosis, lumbar region without neurogenic claudication; M54.50 Low back pain, unspecified; M54.2 Cervicalgia; I10 Essential (primary) hypertension; G89.4 Chronic pain syndrome
CPT/HCPCS: 72148

== ENCOUNTER → 2024-10-02 10:30 | Outpatient (CLI) | payer MEDICARE, OTHER, SELFPAY ==
[2023-03-05 15:15] VITALS: BMI 33.9
[2024-10-02 11:03] LABS: Add Manual Diff / Slide Review NO; Basophils Absolute Auto 100 /uL (0-100); Basophils Percent Auto 0.8 % (0-2); Eosinophils Absolute Auto 100 /uL (0-450); Eosinophils Percent Auto 1.4 % (2-4); Hematocrit 42.1 % (41-53); Hemoglobin 14.3 g/dL (13.5-17.5); Lymphocytes Absolute Auto 1400 /uL (1100-4500); Lymphocytes Percent Auto 20.3 % (25-40); Mean Corpuscular Hemoglobin 31.3 PG (26-34); Mean Corpuscular Volume 91.8 fL (80-100); Monocytes Absolute Auto 700 /uL (0-900); Monocytes Percent Auto 9.5 % (3-14); Neutrophils Absolute Auto 4800 /uL (1500-7000); Platelet Count 214 X10^3/uL (150-400); Red Blood Cell Count 4.58 X10^6/uL (4.5-5.9); Red Cell Distribution Width 12.9 % (11.6-14.8); White Blood Cell Count 7.1 X10^3/uL (4.5-11.0)
[2024-10-02 11:23] LABS: Alanine Aminotransferase 44 IU/L (<50); Albumin 4.3 g/dL (3.5-5.0); Albumin Globulin Ratio 1.7 (1.0-2.8); Alkaline Phosphatase 79 U/L (38-126); Aspartate Aminotransferase 33 IU/L (17-59); BUN Creatinine Ratio 17.2 (6-22); Bilirubin Total 0.5 mg/dL (0.2-1.3); Blood Urea Nitrogen 26 mg/dL (9-20); Calcium 9.7 mg/dL (8.4-10.2); Carbon Dioxide 29 mmol/L (22-32); Chloride 103 mmol/L (98-107); Cholesterol 179 mg/dL (140-199); Estimated Glomerular Filt Rate 48 mL/min (>60); Globulin 2.5 g/dL (1.7-4.1); Glucose 105 mg/dL (80-110); HDL Cholesterol 40 mg/dL (40-60); HEMOLYSIS < 15 (0-50); LDL Cholesterol Calculated 97 mg/dL (<100); Potassium 4.5 mmol/L (3.4-5.1); Sodium 139 mmol/L (137-145); Total Protein 6.8 g/dL (6.3-8.2); Triglycerides 209 mg/dL (35-150)
[2024-10-02 11:53] LABS: TSH w/ Reflex to FT4 0.03 uIU/mL (0.47-4.68)
[2024-10-02 11:55] LABS: Prostate Specific Antigen Scrn 0.625 ng/mL (0.1-4.0)
[2024-10-02 12:27] LABS: Free T4, Direct Thyroxine 1.26 ng/dL (0.78-2.19)
[2024-10-03 07:38] LABS: Apolipoprotein B 93 mg/dL (<90)
[2024-10-05 16:19] LABS: Hep C Virus Ab w/Reflex Quant NEGATIVE s/c (NEGATIVE)
== END ==
PROVIDERS: PCP Family Medicine; Referring Provider Family Medicine; Visit Provider Family Medicine
DX: D64.9 Anemia, unspecified (principal); E05.90 Thyrotoxicosis, unspecified without thyrotoxic crisis or storm; Z12.5 Encounter for screening for malignant neoplasm of prostate; I10 Essential (primary) hypertension; G89.4 Chronic pain syndrome; M19.90 Unspecified osteoarthritis, unspecified site; N52.9 Male erectile dysfunction, unspecified
CPT/HCPCS: 36415; 80053; 80061; 82172; 84439; 84443; 85025; 86803; G0103

== ENCOUNTER → 2025-09-30 10:28 | Outpatient (CLI) | payer MEDICARE, OTHER, SELFPAY ==
[2023-03-05 15:15] VITALS: BMI 33.9
[2025-09-30 10:51] LABS: Add Manual Diff / Slide Review NO; Hematocrit 41.9 % (41-53); Hemoglobin 14.3 g/dL (13.5-17.5); Lymphocytes Absolute Auto 1500 /uL (1100-4500); Mean Corpuscular HGB Conc 34.2 % (30-36); Mean Corpuscular Hemoglobin 31.3 PG (26-34); Mean Corpuscular Volume 91.3 fL (80-100); Platelet Count 177 X10^3/uL (150-400)
[2025-09-30 11:11] LABS: Alanine Aminotransferase 40 IU/L (<50); Albumin 4.3 g/dL (3.5-5.0); Albumin Globulin Ratio 1.6 (1.0-2.8); Alkaline Phosphatase 57 U/L (38-126); Blood Urea Nitrogen 22 mg/dL (9-20); Calcium 8.9 mg/dL (8.4-10.2); Carbon Dioxide 25 mmol/L (22-32); Chloride 107 mmol/L (98-107); Cholesterol 156 mg/dL (140-199); Estimated Glomerular Filt Rate > 60 mL/min (>60); Globulin 2.7 g/dL (1.7-4.1); Glucose 97 mg/dL (70-99); HDL Cholesterol 45 mg/dL (40-60); Sodium 139 mmol/L (137-145); Total Protein 7.0 g/dL (6.3-8.2); Triglycerides 235 mg/dL (35-150)
[2025-09-30 11:16] LABS: HEMOLYSIS 117 (0-50); Potassium 4.6 mmol/L (3.4-5.1)
[2025-09-30 11:44] LABS: TSH w/ Reflex to FT4 < 0.02 uIU/mL (0.47-4.68)
[2025-09-30 12:10] LABS: Free T4, Direct Thyroxine 0.95 ng/dL (0.78-2.19)
== END ==
PROVIDERS: PCP Family Medicine; Referring Provider Family Medicine; Visit Provider Family Medicine
DX: Z12.5 Encounter for screening for malignant neoplasm of prostate (principal); E05.90 Thyrotoxicosis, unspecified without thyrotoxic crisis or storm; I10 Essential (primary) hypertension; D64.9 Anemia, unspecified; G89.4 Chronic pain syndrome
CPT/HCPCS: 36415; 80053; 80061; 84439; 84443; 85025; G0103